=== PATIENT | male | born 1980 | race Caucasian/White ===

== ENCOUNTER 2017-03-09 16:39 | Emergency (ER) | payer OTHER ==
[2017-03-09 16:48] VITALS: BP 155/85; PULSE 75; TEMP 98; BMI 30.9
[2017-03-09] MEDS ORDERED: IBUPROFEN 600 MG TABLET (FP) PO ONE ×2 (17:31→17:36)
--- NOTE | 2017-03-09 17:52 | PDOC ---
History of Present Illness - General Chief Complaint: Pain, Acute Stated Complaint: RT ANKLE INJURY Time Seen by Provider: 03/09/17 17:12 History Source: Patient Exam Limitations: No Limitations - History of Present Illness Initial Comments: 03/09/17 17:52 36-year-old male presents with right ankle pain after tripping and falling while at work yesterday. Patient is been applying ice and topical BenGay with no relief and now has difficulty going up and down steps. Patient denies previous injury to the affected area, radiation of pain, or decreased sensation to the toes. Occurred: reports: yesterday Severity: reports: mild Pain Location: reports: lower extremity Method of Injury: Yes: fall Modifying Factors: improves with: None Associated Symptoms (Fall): trouble walking Past History - Past Medical History Allergies/Adverse Reactions: Allergies Allergy/AdvReac Type Severity Reaction Status Date / Time No Known Allergies Allergy Verified 03/09/17 16:45 Home Medications: Ambulatory Orders NK [No Known Home Medication] 03/09/17 Other medical history: DENIES. - Psycho/Social/Smoking Cessation Hx Anxiety: No Suicidal Ideation: No Smoking History: Never smoked Hx Alcohol Use: Yes (SOMETIMES.) Drug/Substance Use Hx: Yes (SOMETIMES "WEED".) Substance Use Type: Alcohol, Marijuana Patient Lives Alone: No Lives with/in: spouse/SO Review of Systems - Review of Systems Able to Perform ROS?: Yes Constitutional: No: Symptoms Reported Musculoskeletal: Yes: Joint Pain (right ankle) Integumentary: Yes: Bruising Neurological: No: Symptoms reported *Physical Exam - Vital Signs Last Vital Signs Temp Pulse Resp BP Pulse Ox 98 F 75 18 155/85 100 03/09/17 16:45 03/09/17 16:45 03/09/17 16:45 03/09/17 16:45 03/09/17 16:45 - Physical Exam General Appearance: Yes: Nourished, Appropriately Dressed. No: Apparent Distress Vascular Pulses: Dorsalis-Pedis (R): 2+ Extremity: positive: Normal Capillary Refill, Tender (lower lateral aspect of right mallelous ) Integumentary: positive: Ecchymosis (mild to right ankle region) Neurologic: positive: Motor Strength 5/5 (ambulatory with limp) ED Treatment Course - RADIOLOGY Radiology Studies Ordered: Category Date Time Status ANKLE-RIGHT [RAD] Stat Radiology 03/09/17 17:31 Ordered Medical Decision Making - Medical Decision Making 03/09/17 17:57 Patient with injury to right ankle with edema, tenderness and ecchymosis to the lateral aspect of right malleolus. Patient ordered for x-ray and Motrin. 03/09/17 18:07 X-ray negative for fracture or dislocation or other acute pathology. Patient will be discharged home with an Bruce wrap and recommended to follow the rice formula *DC/Admit/Observation/Transfer Diagnosis at time of Disposition: Right ankle sprain Qualifiers: Encounter type: initial encounter Involved ligament of ankle: calcaneofibular ligament Qualified Code(s): S93.411A - Sprain of calcaneofibular ligament of right ankle, initial encounter - Discharge Dispostion Disposition: HOME Condition at time of disposition: Good - Referrals Referrals: STAFF,NOT ON [Primary Care Provider] - - Patient Instructions Printed Discharge Instructions: DI for Ankle Sprain Additional Instructions: Please use Bruce wrap during the day but remove at night. Elevate your extremity and apply ice to the ankle as much as you can tolerate for the next 2 days. Take Motrin 400 mg every 8 hours.
== END 2017-03-09 18:13 | disposition home or self-care (01) ==
LOC: JERFT 16:39
DX: S93.411A Sprain of calcaneofibular ligament of right ankle, initial encounter (principal); W01.0XXA Fall on same level from slipping, tripping and stumbling without subsequent striking against object, initial encounter; Y93.89 Activity, other specified; Y92.89 Other specified places as the place of occurrence of the external cause; Y99.0 Civilian activity done for income or pay
CPT/HCPCS: 73610-TC-RT; 99281-25

== ENCOUNTER 2018-06-13 12:26 | Emergency (ER) | payer OTHER ==
[2018-06-13 12:31] VITALS: TEMP 98; BMI 29.9
--- NOTE | 2018-06-13 13:46 | PDOC ---
History of Present Illness - General Chief Complaint: Palpitations Stated Complaint: CHEST PAIN Time Seen by Provider: 06/13/18 13:01 - History of Present Illness Initial Comments: 06/13/18 13:38 37 yo M w no pmh is here with vague left substernal chest pain, palpitations, lightheadedness, mild SOB, profuse diaphoresis. He claims he's had the chest fluttering sensation for the past 6 months, but he came in today bc it has gotten acutely worse in the past 2 days to the point where it has been driving him nuts and he's having a hard time sleeping. He also reports diarrhea for the past 2 days - non bloody. He recently returned from the [place] 2 days ago. He denies recent fevers, nausea or vomiting, dizziness or passing out. Also denies abdominal pain. He admits to significant alcohol and marijuana usage. He recently took an adderall from a friend and from time to time takes other pills, however none recently. 06/13/18 13:57 Past History - Past Medical History Allergies/Adverse Reactions: Allergies Allergy/AdvReac Type Severity Reaction Status Date / Time No Known Allergies Allergy Verified 06/13/18 12:31 Home Medications: Ambulatory Orders Chlordiazepoxide [Librium -] 10 mg PO BID PRN #5 capsule MDD 3 capsule 06/13/18 COPD: No - Suicide/Smoking/Psychosocial Hx Smoking History: Never smoked Information on smoking cessation initiated: No Hx Alcohol Use: Yes (SOMETIMES.) Drug/Substance Use Hx: Yes (SOMETIMES "WEED".) Substance Use Type: Alcohol, Marijuana Review of Systems - Review of Systems Comments:: 06/13/18 14:21 CONSTITUTIONAL: Positive: diaphoresis Absent: fever, chills, generalized weakness, malaise, loss of appetite HEENT: Absent: rhinorrhea, nasal congestion, throat pain, throat swelling, difficulty swallowing, mouth swelling, ear pain, eye pain, visual Changes CARDIOVASCULAR: Positive: Chest pain, lightheadedness Absent: syncope, palpitations, irregular heart rate, peripheral edema RESPIRATORY: Positive: shortness of breath Absent: cough, dyspnea with exertion, orthopnea, wheezing, stridor, hemoptysis GASTROINTESTINAL: Positive: diarrhea Absent: abdominal pain, abdominal distension, nausea, vomiting, constipation, melena, hematochezia GENITOURINARY: Absent: dysuria, frequency, urgency, hesitancy, hematuria, flank pain, genital pain MUSCULOSKELETAL: Absent: myalgia, arthralgia, joint swelling SKIN: Absent: rash, itching, pallor HEMATOLOGIC/IMMUNOLOGIC: Absent: easy bleeding, easy bruising, lymphadenopathy, frequent infections ENDOCRINE: Absent: unexplained weight gain, unexplained weight loss, heat intolerance, cold intolerance NEUROLOGIC: Positive: occasional arm paresthesias Absent: headache, focal weakness, dizziness, unsteady gait, seizure, mental status changes, bladder or bowel incontinence PSYCHIATRIC: Absent: anxiety, depression, suicidal or homicidal ideation, hallucinations. *Physical Exam - Vital Signs Last Vital Signs Temp Pulse Resp BP Pulse Ox 98 F 62 18 141/101 100 06/13/18 12:29 06/13/18 16:23 06/13/18 16:23 06/13/18 16:23 06/13/18 16:23 - Physical Exam Comments: 06/13/18 14:23 GENERAL: Patient is sweating all over. profusely diaphoretic. Otherwise, well developed, well nourished. Awake and alert. No acute distress. HEENT: Normocephalic, atraumatic. PERRLA, EOMI. No conjunctival pallor. Sclera are non- icteric. Moist mucous membranes. Oropharynx is clear. NECK: Supple. Full ROM. No JVD. Carotid pulses 2+ and symmetric, without bruits. No thyromegaly. No lymphadenopathy. CARDIOVASCULAR: Regular rate and rhythm. No murmurs, rubs, or gallops. Distal pulses are 2+ and symmetric. PULMONARY: No evidence of respiratory distress. Lungs clear to auscultation bilaterally. No wheezing, rales or rhonchi. ABDOMINAL: Soft. Non-tender. Non-distended. No rebound or guarding. No organomegaly. Normoactive bowel sounds. MUSCULOSKELETAL Normal range of motion at all joints. No bony deformities or tenderness. No CVA tenderness. EXTREMITIES: No cyanosis. No clubbing. No edema. No calf tenderness. SKIN: Warm and diaphoretic. Normal capillary refill. No rashes. No jaundice. NEUROLOGICAL: Alert, awake, appropriate. Cranial nerves 2-12 intact. No deficits to light touch and temperature in face, upper extremities and lower extremities. No motor deficits in the in face, upper extremities and lower extremities. Normal speech. Gait is normal without ataxia. PSYCHIATRIC: Cooperative. Good eye contact. Appropriate mood and affect. ED Treatment Course - LABORATORY CBC & Chemistry Diagram: 06/13/18 14:14 06/13/18 14:00 - ADDITIONAL ORDERS Additional order review: Laboratory Results 06/13/18 06/13/18 14:00 14:00 Sodium 143 Potassium 4.2 Chloride 107 Carbon Dioxide 28 Anion Gap 8 BUN 8 Creatinine 0.8 Creat Clearance w eGFR > 60 Random Glucose 94 Calcium 9.2 Total Bilirubin 0.6 AST 21 ALT 67 Alkaline Phosphatase 73 Creatine Kinase 97 Troponin I < 0.02 Total Protein 7.4 Albumin 4.3 TSH Cancelled 0.77 06/13/18 06/13/18 14:14 14:00 RBC 5.55 Cancelled MCV 83.0 Cancelled MCHC 32.8 Cancelled RDW 14.5 Cancelled MPV 8.1 Cancelled Neutrophils % 64.8 Cancelled Lymphocytes % 26.2 Cancelled Monocytes % 7.8 Cancelled Eosinophils % 0.7 Cancelled Basophils % 0.5 Cancelled - RADIOLOGY Radiology Studies Ordered: Category Date Time Status CHEST PA & LAT [RAD] Stat Radiology 06/13/18 13:24 Completed - Medications Given in the ED: ED Medications Discontinued Medications Generic Name Dose Route Start Last Admin Trade Name Freq PRN Reason Stop Dose Admin Chlordiazepoxide HCl 50 mg 06/13/18 14:39 06/13/18 14:51 Librium - PO 06/13/18 14:40 50 mg ONCE ONE Administration Medical Decision Making - Medical Decision Making 06/13/18 14:25 37 yo M w no sig pmh here with diaphoresis, chest pain/fluttering sensation, diarrhea, random arm paresthesias. The chest fluttering sensation has been present for 6 months, but has acutely worsened in past 2 days. he recently traveled to the and drank heavily while on vacation. He denies drinks the past 2 days. His HTN, diaphoresis, and chest fluttering could be explained by alcohol withdrawal. CIWA - 5 He also has diarrhea. Chest fluttering could be due to dehydration/electrolyte abnormality/gastroenteritis. He recently took adderall given to him by a friend. Could also be the cause of his chest fluttering sensation. Low suspicion for ACS. Plan: Cbc, Cmp, Tsh, Trop, CXR, EKG, librium, Re-assess. Patient has been counseled about alcohol withdrawal, and advised to stop drinking. He understands and says he will make an active effort to cut back. 06/13/18 14:37 06/13/18 15:22 *DC/Admit/Observation/Transfer Diagnosis at time of Disposition: Alcohol withdrawal - Discharge Dispostion Disposition: HOME Condition at time of disposition: Improved Decision to Admit order: No - Prescriptions Prescriptions: Chlordiazepoxide [Librium -] 10 mg PO BID PRN #5 capsule MDD 3 capsule PRN Reason: Withdrawal(Cont Subst) - Referrals Referrals: ON STAFF,NOT [Primary Care Provider] - - Patient Instructions Additional Instructions: As discussed, take the prescribed medication (librium) if you have recurrent symptoms such as shakiness, sweatiness, anxiety. You may take 1 pill every 8 hours on day 1. On day 2, take 1 pill every 12 hours. On day 3, take [address] while taking this medication. Drink plenty of fluids and stay hydrated. Your symptoms are due to alcohol withdrawal. Remember to consume alcohol in moderation and refrain from "binge" drinking as we discussed. It was a pleasure to take care of you in the emergency department today. Return to the emergency department if you have any new, worsening, or concerning symptoms. - Post Discharge Activity
[2018-06-13 14:23] LABS: BASO % 0.5 % (0-2.0); EOS % 0.7 % (0-4.5); HEMATOCRIT 46.1 % (35.4-49); HEMOGLOBIN 15.1 GM/dL (11.7-16.9); LYMPH % 26.2 % (8-40); MCH 27.2 pg (25.7-33.7); MCHC 32.8 g/dl (32.0-35.9); MEAN PLT VOLUME 8.1 fl (7.5-11.1); MONO % 7.8 % (3.8-10.2); NEUT % 64.8 % (42.8-82.8); PLATELET COUNT 259 K/MM3 (134-434); RBC 5.55 M/mm3 (4.00-5.60); RDW 14.5 % (11.9-15.9); WHITE BLOOD COUNT 7.2 K/mm3 (4.0-10.0)
[2018-06-13 14:31] LABS: ALBUMIN 4.3 g/dl (3.4-5.0); ANION GAP 8 (8-16); BILIRUBIN,TOTAL 0.6 mg/dL (0.2-1.0); BLOOD UREA NITROGEN 8 mg/dL (7-18); CALCIUM 9.2 mg/dL (8.5-10.1); CHLORIDE 107 mmol/L (98-107); CO2 28 mmol/L (21-32); CREATININE 0.8 mg/dL (0.7-1.3); GLUCOSE,RANDOM 94 mg/dL (74-106); POTASSIUM 4.2 mmol/L (3.5-5.1); SGOT/AST 21 U/L (15-37); SGPT/ALT 67 U/L (12-78); SODIUM 143 mmol/L (136-145); TOT PROT 7.4 g/dl (6.4-8.2)
[2018-06-13] MEDS ORDERED: chlordiazePOXIDE HCL 25 MG CAPSULE PO ONE (14:39)
[2018-06-13 14:40] LABS: ALK PHOS 73 U/L (45-117)
[2018-06-13] MEDS ORDERED: chlordiazePOXIDE HCL 25 MG CAPSULE ONE (14:48)
--- NOTE | 2018-06-13 15:38 | PDOC ---
Attending Attestation - Resident Resident Name: MaryannaEdward - ED Attending Attestation I have performed the following: I have examined & evaluated the patient, The case was reviewed & discussed with the resident, I agree w/resident's findings & plan, Exceptions are as noted - HPI HPI: 06/13/18 16:13 The patient is a 37 year old male with no significant PMH presenting who presents to the ED with twinges under the bilateral armpits and shortness of breath. The patient reports the twinges started under the right armpit and occasionally under the left armpit with a 4/10 in severity. The patient states the twinges are more frequent today and is now experiencing shortness of breath prompting him to come to the ER. Patient denies pain to the arm or exacerbation with movement. Patient denies any trauma to the area. He also reports feeling anxious and sweaty. The patient states he was in the [place] for two weeks and returned two days ago. The patient reports he has been binge drinking every day for the past two weeks and last drank alcohol 2 days ago. Patient denies any family history of cardiac illnesses. Denies hx elevated BP although his BP here is high. The patient endorses diaphoresis, chills, and diarrhea. The patient denies chest pain, shortness of breath, headache and dizziness. Denies leg swelling, fever, nausea, vomit, and constipation. Denies dysuria, frequency, urgency and hematuria. Allergies: NKA Past surgical history: None reported. Social history: No reported alcohol or cigarette use. 5 blunts of weed per day. Family hx: father from etoh abuse - Physicial Exam PE: 06/13/18 16:31 GENERAL: Awake, alert, and fully oriented, mildly diaphoretic HEAD: No signs of trauma EYES: PERRLA, EOMI, sclera anicteric, conjunctiva clear ENT: Auricles normal inspection, hearing grossly normal, nares patent, oropharynx clear without exudates. Moist mucosa NECK: Normal ROM, supple, no lymphadenopathy, JVD, or masses LUNGS: Breath sounds equal, clear to auscultation bilaterally. No wheezes, and no crackles HEART: Regular rate and rhythm, normal S1 and S2, no murmurs, rubs or gallops ABDOMEN: Soft, nontender, normoactive bowel sounds. No guarding, no rebound. No masses EXTREMITIES: Normal range of motion, no edema. No clubbing or cyanosis. No cords, erythema, or tenderness NEUROLOGICAL: Normal speech, cranial nerves intact, negative pronator drift, 5/ 5 strength in all 4 extremities, normal sensation to light touch in all 4 extremities, normal cerebellar exam, normal gait, normal reflexes and tone. No agitation SKIN: Warm, Dry, normal turgor, no rashes or lesions noted. - Medical Decision Making 06/13/18 16:34 37-year-old male with no significant past medical history presents to the emergency department with multiple vague symptoms including twinges in his bilateral axilla, anxiety, diaphoresis, and shortness of breath. Vitals remarkable for hypertension. Given timing of recent binge drinking while on vacation and last drink being 2 days ago, symptoms are likely secondary to mild alcohol withdrawal. CIWA score in the emergency department is 3. Pt treated with librium with good response, feels significantly better. Labs, XR wnl. Given withdrawal symptoms, pt offered detox, but declines. In light of mild sxs and low ciwa score, we called [facility] to discuss outpt management of mild etoh withdrawal. Case discussed with LEIGHANN Montiel who recommended that based on last drink being 2 days ago and low ciwa, pt can be discharged on low librium taper of 10-15mg TID on day 1, BID on day 2, and single dose on day 3. Plan discussed with patient, and spent some time discussing etoh abuse/ withdrawal. Pt counseled on drinking etoh in moderation and receptive of counseling. I discussed the physical exam findings, ancillary test results and final diagnoses with the patient. I answered all of the patient's questions. The patient was satisfied with the care received and felt comfortable with the discharge plan and treatment plan. The patient will call their primary care physician within 24 hours to arrange follow-up and will return to the Emergency Department with any new, persistent or worsening symptoms. Discharge Disposition - Diagnosis Alcohol withdrawal - Discharge Dispostion Disposition: HOME Condition at time of disposition: Improved Decision to Admit order: No - Prescriptions Prescriptions: Chlordiazepoxide [Librium -] 10 mg PO BID PRN #5 capsule MDD 3 capsule PRN Reason: Withdrawal(Cont Subst) - Referrals - Patient Instructions Additional Instructions: As discussed, take the prescribed medication (librium) if you have recurrent symptoms such as shakiness, sweatiness, anxiety. You may take 1 pill every 8 hours on day 1. On day 2, take 1 pill every 12 hours. On day 3, take [address] while taking this medication. Drink plenty of fluids and stay hydrated. Your symptoms are due to alcohol withdrawal. Remember to consume alcohol in moderation and refrain from "binge" drinking as we discussed. It was a pleasure to take care of you in the emergency department today. Return to the emergency department if you have any new, worsening, or concerning symptoms. - Post Discharge Activity Heart Score/ECG Review #1 06/13/18 16:34 Twelve-lead EKG was performed and reviewed by me. Sinus bradycardia, rate 53. Normal axis and intervals. No ST elevations or T-wave inversions.
[2018-06-13 16:24] VITALS: BP 141/101; PULSE 62
--- NOTE | 2018-06-15 10:34 | EKG ---
Test Reason : Blood Pressure : / mmHG Vent. Rate : 053 BPM Atrial Rate : 053 BPM P-R Int : 184 ms QRS Dur : 090 ms QT Int : 432 ms P-R-T Axes : 010 059 037 degrees QTc Int : 405 ms SINUS BRADYCARDIA OTHERWISE NORMAL ECG WHEN COMPARED WITH ECG OF 12-JUL-2007 12:25, NO SIGNIFICANT CHANGE WAS FOUND Confirmed by RAMA MONREAL MD ([id number]) on 06/15/2018 10:33:55 AM Referred By: Confirmed By:RAMA MONREAL MD
== END 2018-06-13 16:23 | disposition home or self-care (01) ==
LOC: JER 12:26
DX: F10.239 Alcohol dependence with withdrawal, unspecified (principal); Y90.9 Presence of alcohol in blood, level not specified
CPT/HCPCS: 36415; 71046-TC-FY; 80053; 82550; 84443; 84484; 85025; 93005; 93010; 99282-25